=== PATIENT | female | born 1980 | race African-American/Black ===

== ENCOUNTER 2017-01-13 19:27 | Emergency (ER) | payer MEDICAID ==
[~2017-01-13] VITALS: Ht 175.3 cm; Wt 70.4 kg
[~2017-01-13 19:27] MED LIST: SERT25TA PO
[2017-01-13 20:19] LABS: BLOOD UREA NITROGEN 11 mg/dL (7-18)
[2017-01-13 20:44] LABS: HCG UR OBC PASS
[2017-01-13] MEDS ORDERED: LORA-446 PO (21:01)
[2017-01-13] MEDS ORDERED: TRAZ300T2 PO (21:01)
[2017-01-13 21:36] LABS: HEMOGLOBIN 11.5 g/dL (11.7-16.4)
[2017-01-13] MEDS ORDERED: ACETAMINOPHEN 500 MG TABLET ONE (22:44)
[2017-01-13 23:00] VITALS: BP 112/77
[2017-01-13] MEDS ORDERED: ACETAMINOPHEN 500 MG TABLET PO ONE (23:00)
== END 2017-01-13 23:02 | disposition home or self-care (01) ==
LOC: ED 22:50
DX: N23 Unspecified renal colic (principal); R31.9 Hematuria, unspecified
CPT/HCPCS: 36415; 74176; 80048; 81001; 81025; 82040; 85025; 87086

== ENCOUNTER 2017-03-21 17:43 | Emergency (ER) | payer MEDICAID ==
[~2017-03-21] VITALS: Ht 172.7 cm; Wt 70.4 kg
[~2017-03-21 17:43] MED LIST changes: +LORA-446 PO; +TRAZ300T2 PO
[2017-03-21] MEDS ORDERED: SODIUM CHLORIDE 0.9% 1,000 ML IV ONE (18:19)
[2017-03-21] MEDS ORDERED: SODIUM CHLORIDE FLUSH 10ML SYR IVF ONE (18:30)
[2017-03-21 19:19] LABS: ASPARTATE AMINO TRANSFERASE 16 U/L (15-37); BLOOD UREA NITROGEN 12 mg/dL (7-18)
[2017-03-21] MEDS ORDERED: ONDANSETRON 2MG/ML, 2ML IVPush ONE (19:30)
[2017-03-21] MEDS ORDERED: ONDANSETRON 2MG/ML, 2ML ONE (19:32)
[2017-03-21] MEDS ORDERED: HYDROmorphone 1 MG/ML, 1ML ONE ×2 (19:32→21:03)
[2017-03-21] MEDS: HYDROmorphone 1 MG/ML, 1ML IVPush PRN ×2 (19:44→21:09)
[2017-03-21] MEDS ORDERED: LORazepam 2 MG/ML, 1ML ONE (20:40)
[2017-03-21] MEDS ORDERED: LORazepam 2 MG/ML, 1ML IVPush ONE (21:00)
[2017-03-21 21:13] VITALS: BP 120/84
[2017-03-21] MEDS ORDERED: OMNIPAQUE 350 MG/ML, 100ML BOTTLE ONE (21:53)
== END 2017-03-21 22:10 | disposition home or self-care (01) ==
LOC: ED 22:00
DX: N83.291 Other ovarian cyst, right side (principal)
CPT/HCPCS: 36415; 74177; 80053; 81001; 83690; 84703; 85025; 96361; 96374; 96375; 96376; 99285; J1170; J2060; J2405; J7030; Q9967